=== PATIENT | male | born 1990 | race Caucasian/White ===

== ENCOUNTER 2022-02-13 08:13 | Day surgery (SDC) | payer BC ==
[2022-02-07 13:27] VITALS: BMI 29.9
[2022-02-13 08:32] VITALS: RESP 18; TEMP 97
[2022-02-13] MEDS ORDERED: LIDOCAINE HCL 2% (20ML MULTI-DOSE VIAL) ONE (09:49)
[2022-02-13] MEDS ORDERED: MIDAZOLAM HCL 2 MG/2 ML SINGLE DOSE VIAL ONE (09:52)
[2022-02-13] MEDS ORDERED: FENTANYL CITRATE/PF 50 MCG/ML VIAL ONE (09:52)
[2022-02-13 11:54] VITALS: BP 122/60; PULSE 67
== END 2022-02-13 11:55 | disposition home or self-care (01) ==
LOC: FASU 08:13
PROVIDERS: ATTEND Orthopaedic Surgery Hand Surgery
PROC: 0JBK0ZX Excision of Left Hand Subcutaneous Tissue and Fascia, Open Approach, Diagnostic (ICD-10-PCS; principal; 2022-02-13 10:20)
DX: L98.0 Pyogenic granuloma (principal)
CPT/HCPCS: 88305-TC